=== PATIENT | male | born 1990 | race Two or more races ===

== ENCOUNTER 2018-09-15 13:45 | Inpatient (IN) | payer MEDICAID, OTHER ==
[~2018-09-15] VITALS: Ht 170.2 cm; Wt 64.6 kg
[2018-09-15] MEDS: HALOPERIDOL 5 MG TABLET PO ONE ×2 (14:15→15:18)
[2018-09-15 18:53] VITALS: BP 133/75
[2018-09-16 06:09] VITALS: BP 101/67
[2018-09-16 07:49] LABS: BASOPHILS % (AUTO) 0.2 % (0.0-2.0); EOSINOPHILS % (AUTO) 1.4 % (1.0-6.0); HEMOGLOBIN 13.7 g/dL (13.5-17.5); LYMPHOCYTES # (AUTO) 1.5 K/uL (1.0-4.8); LYMPHOCYTES % (AUTO) 28.7 % (22.0-44.0); MEAN CORPUSCULAR HGB CONC 33.5 G/dL (31.0-37.0); MEAN CORPUSCULAR VOLUME 90 fL (80-100); MONOCYTES # (AUTO) 0.7 K/uL (0.1-1.0); MONOCYTES % (AUTO) 13.1 % (2.0-9.0); NEUTROPHILS % (AUTO) 56.6 % (40.0-70.0); PLATELET COUNT (AUTO) 321 K/uL (150-450); RED BLOOD CELL COUNT(AUTO) 4.57 MIL/uL (4.50-5.90)
[2018-09-16 08:18] LABS: HEMOGLOBIN A1C 5.4 % (4.5-6.2)
[2018-09-16 08:28] VITALS: BP 100/67
[2018-09-16 08:39] LABS: ALANINE AMINOTRANSFERASE 14 U/L (12-78); ALKALINE PHOSPHATASE 56 U/L (46-116); ANION GAP 8 mmol/L (8-16); ASPARTATE AMINOTRANSFERASE 22 U/L (15-37); BILIRUBIN,TOTAL 0.5 mg/dL (0.1-1.0); CARBON DIOXIDE 27 mmol/L (22-29); CHLORIDE 106 mmol/L (98-107); CHOL/HDL RATIO 3.3 (4.2-7.3); CHOLESTEROL 118 mg/dL (131-200); CREATININE 0.82 mg/dL (0.60-1.30); FREE T4 (FREE THYROXINE) 1.08 ng/dL (0.76-1.46); GLOMERULAR FILTR. RATE CALC > 60 mL/min (>60); GLUCOSE,RANDOM 72 mg/dL (70-110); HDL CHOLESTEROL 36 mg/dL (40-60); LDL CHOL (CALC.) 59 mg/dL (0-130); POTASSIUM 3.4 mmol/L (3.5-5.1); SODIUM SERUM 141 mmol/L (136-145); THYROID STIMULATING HORMONE 1.16 uIU/mL (0.36-3.74); TOTAL PROTEIN, SERUM 6.9 g/dL (6.4-8.2); TRIGLYCERIDES 116 mg/dL (15-150); UREA NITROGEN, BLOOD 6 mg/dL (7-18)
[2018-09-16 16:18] VITALS: BP 109/70
[2018-09-16] MEDS: RisperiDONE 1 MG TABLET PO SCH ×2 (16:53→19:33)
[2018-09-16] MEDS: LORazepam 2 MG TABLET PO PRN (19:33)
[2018-09-16] MEDS: HALOPERIDOL 5 MG TABLET PO PRN (19:33)
[2018-09-17 06:16] VITALS: BP 101/60
[2018-09-17 08:02] VITALS: BP 101/64
[2018-09-17 08:06] LABS: BASOPHILS % (AUTO) 0.3 % (0.0-2.0); HEMATOCRIT 39.9 % (41-53); HEMOGLOBIN 13.1 g/dL (13.5-17.5); LYMPHOCYTES # (AUTO) 1.3 K/uL (1.0-4.8); LYMPHOCYTES % (AUTO) 29.8 % (22.0-44.0); MEAN CORPUSCULAR VOLUME 91 fL (80-100); MONOCYTES # (AUTO) 0.5 K/uL (0.1-1.0); MONOCYTES % (AUTO) 12.6 % (2.0-9.0); NEUTROPHILS # (AUTO) 2.4 K/uL (1.8-7.7); NEUTROPHILS % (AUTO) 56.3 % (40.0-70.0); PLATELET COUNT (AUTO) 295 K/uL (150-450); RED BLOOD CELL COUNT(AUTO) 4.38 MIL/uL (4.50-5.90); RED CELL DISTRIBUTION WIDTH 13.7 % (11.5-14.5)
[2018-09-17] MEDS: RisperiDONE 1 MG TABLET PO SCH ×2 (09:49→16:44)
[2018-09-17 16:11] VITALS: BP 108/66
[2018-09-17] MEDS: LACTULOSE 20 GM/30 ML SOLUTION UDCUP PO SCH (16:44)
[2018-09-18 06:00] VITALS: BP 100/61
[2018-09-18 08:16] VITALS: BP 108/62
[2018-09-18] MEDS: RisperiDONE 1 MG TABLET PO SCH ×2 (09:00→16:51)
[2018-09-18] MEDS: LACTULOSE 20 GM/30 ML SOLUTION UDCUP PO SCH ×2 (09:00→16:51)
[2018-09-18 16:19] VITALS: BP 134/83
[2018-09-18] MEDS: HALOPERIDOL 5 MG TABLET PO PRN (16:51)
[2018-09-18] MEDS: LORazepam 2 MG TABLET PO PRN (16:51)
[2018-09-19 06:13] VITALS: BP 110/65
[2018-09-19 07:09] LABS: BASOPHILS % (AUTO) 0.3 % (0.0-2.0); EOSINOPHILS % (AUTO) 0.8 % (1.0-6.0); HEMOGLOBIN 14.1 g/dL (13.5-17.5); LYMPHOCYTES # (AUTO) 1.3 K/uL (1.0-4.8); LYMPHOCYTES % (AUTO) 26.8 % (22.0-44.0); MEAN CORPUSCULAR HEMOGLOBIN 30.3 pg (26.0-34.0); MEAN CORPUSCULAR HGB CONC 33.5 G/dL (31.0-37.0); MEAN CORPUSCULAR VOLUME 90 fL (80-100); MONOCYTES # (AUTO) 0.6 K/uL (0.1-1.0); MONOCYTES % (AUTO) 12.6 % (2.0-9.0); NEUTROPHILS # (AUTO) 2.9 K/uL (1.8-7.7); NEUTROPHILS % (AUTO) 59.5 % (40.0-70.0); PLATELET COUNT (AUTO) 297 K/uL (150-450); RED BLOOD CELL COUNT(AUTO) 4.65 MIL/uL (4.50-5.90)
[2018-09-19 08:00] VITALS: BP 101/61
[2018-09-19] MEDS ORDERED: POTASSIUM CHLORIDE 20 MEQ ER TABLET PO ONE (08:30)
[2018-09-19] MEDS: RisperiDONE 1 MG TABLET PO SCH ×2 (09:16→16:25)
[2018-09-19] MEDS: LACTULOSE 20 GM/30 ML SOLUTION UDCUP PO SCH ×2 (09:16→16:25)
[2018-09-19] MEDS: LORazepam 2 MG TABLET PO PRN (16:25)
[2018-09-19] MEDS: HALOPERIDOL 5 MG TABLET PO PRN (16:25)
[2018-09-19] MEDS: ZOLPIDEM TARTRATE 10 MG TABLET PO PRN (20:41)
[2018-09-20 08:18] LABS: ANION GAP 4 mmol/L (8-16); CALCIUM, TOTAL 8.8 mg/dL (8.8-10.5); CARBON DIOXIDE 29 mmol/L (22-29); CHLORIDE 104 mmol/L (98-107); GLOMERULAR FILTR. RATE CALC > 60 mL/min (>60); GLUCOSE,RANDOM 83 mg/dL (70-110); POTASSIUM 4.5 mmol/L (3.5-5.1); SODIUM SERUM 137 mmol/L (136-145); UREA NITROGEN, BLOOD 8 mg/dL (7-18)
[2018-09-20] MEDS: LORazepam 2 MG TABLET PO PRN ×2 (08:47→16:30)
[2018-09-20] MEDS: RisperiDONE 1 MG TABLET PO SCH ×3 (08:47→16:57)
[2018-09-20] MEDS: LACTULOSE 20 GM/30 ML SOLUTION UDCUP PO SCH ×3 (08:47→16:57)
[2018-09-20 16:13] VITALS: BP 111/68
[2018-09-20] MEDS: HALOPERIDOL 5 MG TABLET PO PRN (16:30)
[2018-09-20] MEDS: ZOLPIDEM TARTRATE 10 MG TABLET PO PRN (20:14)
[2018-09-21 05:37] VITALS: BP 103/69
[2018-09-21] MEDS: RisperiDONE 1 MG TABLET PO SCH ×2 (08:37→16:45)
[2018-09-21] MEDS: LACTULOSE 20 GM/30 ML SOLUTION UDCUP PO SCH ×2 (08:37→16:44)
[2018-09-21] MEDS: LORazepam 2 MG TABLET PO PRN (08:37)
[2018-09-21 16:10] VITALS: BP 100/59
[2018-09-21] MEDS: HALOPERIDOL 5 MG TABLET PO PRN (16:45)
[2018-09-21] MEDS ORDERED: LORazepam 2 MG/ML VIAL ONE (18:28)
[2018-09-21] MEDS: ZOLPIDEM TARTRATE 10 MG TABLET PO PRN (20:27)
[2018-09-22 00:06] VITALS: BP 102/69
[2018-09-22] MEDS: LACTULOSE 20 GM/30 ML SOLUTION UDCUP PO SCH ×2 (08:39→16:21)
[2018-09-22] MEDS: RisperiDONE 1 MG TABLET PO SCH ×2 (08:39→16:21)
[2018-09-22] MEDS: LORazepam 2 MG TABLET PO PRN ×2 (08:39→16:21)
[2018-09-22 08:59] VITALS: BP 115/82
[2018-09-22] MEDS: HALOPERIDOL 5 MG TABLET PO PRN (16:21)
[2018-09-22 16:26] VITALS: BP 142/88
[2018-09-23 06:28] VITALS: BP 110/79
[2018-09-23 08:23] VITALS: BP 107/72
[2018-09-23] MEDS: LACTULOSE 20 GM/30 ML SOLUTION UDCUP PO SCH ×2 (08:38→16:22)
[2018-09-23] MEDS: RisperiDONE 1 MG TABLET PO SCH ×2 (08:38→16:22)
[2018-09-23 16:13] VITALS: BP 110/74
[2018-09-23] MEDS: LORazepam 2 MG TABLET PO PRN (16:22)
[2018-09-23] MEDS: HALOPERIDOL 5 MG TABLET PO PRN (16:22)
[2018-09-23] MEDS: ZOLPIDEM TARTRATE 10 MG TABLET PO PRN (20:39)
[2018-09-24 05:04] VITALS: BP 99/62
[2018-09-24] MEDS: RisperiDONE 1 MG TABLET PO SCH ×2 (09:00→16:36)
[2018-09-24] MEDS: HALOPERIDOL 5 MG TABLET PO PRN (16:36)
[2018-09-24] MEDS: LORazepam 2 MG TABLET PO PRN (16:36)
[2018-09-25 05:58] VITALS: BP 108/72
[2018-09-25 08:27] VITALS: BP 110/65
[2018-09-25] MEDS: RisperiDONE 1 MG TABLET PO SCH ×2 (09:19→16:49)
[2018-09-25 16:25] VITALS: BP 107/76
[2018-09-26 06:30] VITALS: BP 100/67
[2018-09-26 08:37] VITALS: BP 102/71
[2018-09-26] MEDS: RisperiDONE 1 MG TABLET PO SCH ×2 (09:14→16:40)
[2018-09-26 16:17] VITALS: BP 111/74
[2018-09-27 06:45] VITALS: BP 123/66
[2018-09-27 08:24] VITALS: BP 107/69
[2018-09-27] MEDS: RisperiDONE 1 MG TABLET PO SCH (09:29)
[2018-09-27] MEDS ORDERED: RISP1 PO (10:17)
== END 2018-09-27 10:50 | disposition home or self-care (01) | DRG 750 ==
LOC: EMS 13:45 → B3A 17:32
PROVIDERS: ADMIT Psychiatry & Neurology Psychiatry; ATTEND Psychiatry & Neurology Psychiatry
DX: F20.0 Paranoid schizophrenia (principal); Z59.0 Homelessness; F94.0 Selective mutism; Z53.20 Procedure and treatment not carried out because of patient's decision for unspecified reasons; Z91.19 Patient's noncompliance with other medical treatment and regimen
CPT/HCPCS: 80074; 83036; 84439; 84443; 86592; J2060

== ENCOUNTER 2020-09-09 16:54 | Inpatient (IN) | payer MEDICAID, OTHER ==
[~2020-09-09] VITALS: Ht 167.6 cm; Wt 74.2 kg
[~2020-09-09 16:54] MED LIST: RISP1TAB48 PO
[2020-09-09] MEDS ORDERED: PERMETHRIN 5% 60 GM CREAM TP ONE (18:45)
[2020-09-09 18:49] LABS: BASOPHILS % (AUTO) 0.3 % (0.0-2.0); HEMATOCRIT 47.7 % (41-53); HEMOGLOBIN 16.3 g/dL (13.5-17.5); LYMPHOCYTES # (AUTO) 1.3 K/uL (1.0-4.8); LYMPHOCYTES % (AUTO) 16.6 % (22.0-44.0); MEAN CORPUSCULAR HEMOGLOBIN 31.5 pg (26.0-34.0); MEAN CORPUSCULAR HGB CONC 34.2 G/dL (31.0-37.0); MEAN CORPUSCULAR VOLUME 92 fL (80-100); MONOCYTES % (AUTO) 12.6 % (2.0-9.0); NEUTROPHILS # (AUTO) 4.4 K/uL (1.8-7.7); NEUTROPHILS % (AUTO) 54.8 % (40.0-70.0); PLATELET COUNT (AUTO) 256 K/uL (150-450); RED BLOOD CELL COUNT(AUTO) 5.17 MIL/uL (4.50-5.90); RED CELL DISTRIBUTION WIDTH 13.2 % (11.5-14.5)
[2020-09-09 18:50] LABS: EOSINOPHILS % (AUTO) 15.7 % (1.0-6.0)
[2020-09-09] MEDS ORDERED: RISP3TAB35 PO (18:55)
[2020-09-09] MEDS ORDERED: LORazepam 2 MG/ML VIAL IM ONE (19:00)
[2020-09-09] MEDS ORDERED: DiphenhydrAMINE HCL 50 MG/ML VIAL IM ONE (19:00)
[2020-09-09] MEDS ORDERED: HALOPERIDOL LACTATE 5 MG/ML VIAL IM ONE (19:00)
[2020-09-09 19:01] LABS: ANION GAP 6 mmol/L (8-16); CALCIUM, TOTAL 9.6 mg/dL (8.8-10.5); CARBON DIOXIDE 30 mmol/L (22-29); CHLORIDE 102 mmol/L (98-107); CREATININE 1.09 mg/dL (0.60-1.30); GLOMERULAR FILTR. RATE CALC > 60 mL/min (>60); GLUCOSE,RANDOM 97 mg/dL (70-110); SODIUM SERUM 138 mmol/L (136-145); UREA NITROGEN, BLOOD 12 mg/dL (7-18)
[2020-09-09 19:05] LABS: PLATELET MORPHOLOGY COMMENT LARGE PLTS PRESENT
[2020-09-09 19:07] LABS: ALANINE AMINOTRANSFERASE 26 U/L (12-78); ALBUMIN 4.7 g/dL (3.4-5.0); ALKALINE PHOSPHATASE 94 U/L (46-116); ASPARTATE AMINOTRANSFERASE 31 U/L (15-37); BILIRUBIN,TOTAL 0.6 mg/dL (0.1-1.0); TOTAL PROTEIN, SERUM 8.4 g/dL (6.4-8.2)
[2020-09-09] MEDS ORDERED: ZOLPIDEM TARTRATE 10 MG TABLET PO PRN (20:30)
[2020-09-09] MEDS ORDERED: QUEtiapine FUMARATE 100 MG TABLET PO PRN (20:30)
[2020-09-09] MEDS ORDERED: LORazepam 2 MG TABLET PO PRN (20:30)
[2020-09-09 21:52] LABS: COVID AG,FIA SOURCE NASOPHARYNGEAL
[2020-09-10 06:54] LABS: CHOL/HDL RATIO 4.1 (4.2-7.3); CHOLESTEROL 175 mg/dL (131-200); HDL CHOLESTEROL 43 mg/dL (40-60); TRIGLYCERIDES 123 mg/dL (15-150)
[2020-09-10 06:55] LABS: LDL CHOL (CALC.) 107 mg/dL (0-130)
[2020-09-10 13:26] VITALS: BP 109/70
[2020-09-11] MEDS ORDERED: DOCUSATE SODIUM 100 MG CAPSULE PO PRN (07:15)
[2020-09-11] MEDS ORDERED: ONDANSETRON HCL 4 MG TABLET PO PRN (07:15)
[2020-09-11] MEDS ORDERED: MAG HYDROX/AL HYDROX/SIMETH ES 30 ML SUSPENSION UDCUP PO PRN (07:15)
[2020-09-11] MEDS ORDERED: NICOTINE 14 MG/24 HOUR PATCH TD PRN (07:15)
[2020-09-11] MEDS ORDERED: LOPERAMIDE HCL 2 MG CAPSULE PO PRN (07:15)
[2020-09-11] MEDS ORDERED: MAGNESIUM HYDROXIDE SUSPENSION 30 ML UDCUP PO PRN (07:15)
[2020-09-11] MEDS ORDERED: IBUPROFEN 400 MG TABLET PO PRN (07:15)
[2020-09-11] MEDS ORDERED: CloNIDine HCL 0.1 MG TABLET PO PRN (07:15)
[2020-09-11] MEDS ORDERED: ACETAMINOPHEN 325 MG TABLET PO PRN (07:15)
[2020-09-11] MEDS ORDERED: ALBUTEROL SULFATE HFA 90 MCG/PUFF 8 GM INHALER IH PRN (07:15)
[2020-09-11] MEDS ORDERED: GuaiFENesin/D-METHORPHAN [SUGAR-FREE] 200-20MG/10 ML SYRUP UDCUP PO PRN (07:15)
[2020-09-11 08:59] VITALS: BP 100/64
[2020-09-11] MEDS: RisperiDONE 3 MG TABLET PO SCH ×2 (09:45→16:54)
[2020-09-12] MEDS: RisperiDONE 3 MG TABLET PO SCH ×2 (09:00→17:00)
[2020-09-12 16:00] VITALS: BP 104/64
[2020-09-12] MEDS ORDERED: PERMETHRIN 1% 60 ML LOTION TP ONE (21:00)
[2020-09-12] MEDS ORDERED: PERMETHRIN 5% 60 GM CREAM TP ONE (21:00)
[2020-09-13] MEDS: RisperiDONE 3 MG TABLET PO SCH ×2 (09:00→16:49)
[2020-09-14] MEDS: RisperiDONE 3 MG TABLET PO SCH ×2 (09:00→17:00)
[2020-09-15] MEDS: RisperiDONE 3 MG TABLET PO SCH ×3 (09:00→16:50)
[2020-09-16] MEDS: RisperiDONE 3 MG TABLET PO SCH ×2 (09:00→17:00)
[2020-09-17] MEDS: RisperiDONE 3 MG TABLET PO SCH ×2 (09:00→16:51)
[2020-09-18] MEDS: RisperiDONE 3 MG TABLET PO SCH ×3 (08:40→17:00)
[2020-09-19] MEDS: RisperiDONE 3 MG TABLET PO SCH ×2 (09:00→17:24)
[2020-09-19] MEDS ORDERED: PERMETHRIN 1% 60 ML LOTION TP ONE (14:00)
[2020-09-20] MEDS: RisperiDONE 3 MG TABLET PO SCH ×2 (09:00→16:54)
[2020-09-20 16:00] VITALS: BP 126/78
[2020-09-20] MEDS ORDERED: HALOPERIDOL LACTATE 5 MG/ML VIAL IM PRN (16:45)
[2020-09-21 08:00] VITALS: BP 102/64
[2020-09-21] MEDS: RisperiDONE 3 MG TABLET PO SCH ×2 (13:27→16:21)
[2020-09-22] MEDS: RisperiDONE 3 MG TABLET PO SCH ×2 (08:09→16:12)
[2020-09-23] MEDS: RisperiDONE 3 MG TABLET PO SCH ×2 (08:26→16:50)
[2020-09-23 14:37] LABS: COVID AG,FIA SOURCE NASOPHARYNGEAL
[2020-09-23 16:27] VITALS: BP 129/83
[2020-09-24] MEDS: RisperiDONE 3 MG TABLET PO SCH ×2 (09:51→16:52)
[2020-09-24 10:40] VITALS: BP 106/68
[2020-09-24 16:09] VITALS: BP 121/78
[2020-09-25] MEDS: RisperiDONE 3 MG TABLET PO SCH ×2 (09:50→16:44)
[2020-09-25 16:17] VITALS: BP 129/82
[2020-09-26] MEDS: RisperiDONE 3 MG TABLET PO SCH ×2 (08:54→16:43)
[2020-09-26] MEDS ORDERED: PERMETHRIN 5% 60 GM CREAM TP ONE (15:00)
[2020-09-26 16:17] VITALS: BP 129/77
[2020-09-27] MEDS: RisperiDONE 3 MG TABLET PO SCH ×2 (08:58→17:33)
[2020-09-28] MEDS: RisperiDONE 3 MG TABLET PO SCH ×2 (10:23→16:45)
[2020-09-29] MEDS: RisperiDONE 3 MG TABLET PO SCH ×2 (08:23→16:29)
[2020-09-29 08:25] VITALS: BP 110/72
[2020-09-29] MEDS: CALAMINE/ZINC OXIDE 177 ML LOTION TP PRN (09:31)
[2020-09-30] MEDS: RisperiDONE 3 MG TABLET PO SCH ×2 (08:32→16:32)
[2020-09-30 08:39] VITALS: BP 114/68
[2020-09-30 16:23] VITALS: BP 110/66
[2020-10-01] MEDS: RisperiDONE 3 MG TABLET PO SCH ×2 (08:02→16:10)
[2020-10-01 08:15] VITALS: BP 104/53
[2020-10-01] MEDS: CALAMINE/ZINC OXIDE 177 ML LOTION TP PRN (14:50)
[2020-10-01 16:16] VITALS: BP 112/62
[2020-10-02 08:45] VITALS: BP 114/67
[2020-10-02] MEDS: RisperiDONE 3 MG TABLET PO SCH ×2 (09:52→16:28)
[2020-10-03] MEDS: RisperiDONE 3 MG TABLET PO SCH ×2 (08:38→16:44)
[2020-10-03 16:25] LABS: COVID AG,FIA SOURCE NASOPHARYNGEAL
[2020-10-04] MEDS: VITAMINS A & D 113 GM OINTMENT TP SCH ×2 (08:52→20:56)
[2020-10-04] MEDS: RisperiDONE 3 MG TABLET PO SCH ×2 (08:52→16:18)
[2020-10-04] MEDS: DIVALPROEX SODIUM 500 MG DR TABLET PO SCH ×2 (15:00→20:29)
[2020-10-05 08:18] VITALS: BP 128/79
[2020-10-05] MEDS: DIVALPROEX SODIUM 500 MG DR TABLET PO SCH ×2 (08:42→20:58)
[2020-10-05] MEDS: RisperiDONE 3 MG TABLET PO SCH ×2 (08:42→16:24)
[2020-10-06 08:00] VITALS: BP 110/68
[2020-10-06] MEDS: DIVALPROEX SODIUM 500 MG DR TABLET PO SCH ×2 (08:27→20:30)
[2020-10-06] MEDS: RisperiDONE 3 MG TABLET PO SCH ×2 (08:27→17:16)
[2020-10-06] MEDS: VITAMINS A & D 113 GM OINTMENT TP SCH (08:31)
[2020-10-06 16:54] VITALS: BP 124/81
[2020-10-07 08:00] VITALS: BP 90/60
[2020-10-07] MEDS: RisperiDONE 3 MG TABLET PO SCH ×2 (08:21→16:42)
[2020-10-07] MEDS: VITAMINS A & D 113 GM OINTMENT TP SCH (08:21)
[2020-10-07] MEDS: DIVALPROEX SODIUM 500 MG DR TABLET PO SCH ×2 (08:21→20:55)
[2020-10-08 08:15] VITALS: BP 123/78
[2020-10-08] MEDS: VITAMINS A & D 113 GM OINTMENT TP SCH (08:35)
[2020-10-08] MEDS: DIVALPROEX SODIUM 500 MG DR TABLET PO SCH ×2 (08:35→20:22)
[2020-10-08] MEDS: RisperiDONE 3 MG TABLET PO SCH ×2 (08:35→16:25)
[2020-10-08] MEDS: CALAMINE/ZINC OXIDE 177 ML LOTION TP PRN (14:33)
[2020-10-09 08:27] VITALS: BP 110/64
[2020-10-09] MEDS: DIVALPROEX SODIUM 500 MG DR TABLET PO SCH ×2 (08:52→20:21)
[2020-10-09] MEDS: VITAMINS A & D 113 GM OINTMENT TP SCH (08:52)
[2020-10-09] MEDS: RisperiDONE 3 MG TABLET PO SCH ×2 (08:52→16:00)
[2020-10-10 08:37] VITALS: BP 100/59
[2020-10-10] MEDS: DIVALPROEX SODIUM 500 MG DR TABLET PO SCH ×2 (11:21→20:18)
[2020-10-10] MEDS: VITAMINS A & D 113 GM OINTMENT TP SCH (11:21)
[2020-10-10] MEDS: RisperiDONE 3 MG TABLET PO SCH ×2 (11:21→16:17)
[2020-10-10] MEDS: CALAMINE/ZINC OXIDE 177 ML LOTION TP PRN (11:22)
[2020-10-10] MEDS: PETROLATUM,WHITE 28 GM JELLY TP PRN (11:22)
[2020-10-10 11:56] LABS: COVID AG,FIA SOURCE NASOPHARYNGEAL
[2020-10-10 16:19] VITALS: BP 121/76
[2020-10-11 08:38] VITALS: BP 109/67
[2020-10-11] MEDS: RisperiDONE 3 MG TABLET PO SCH ×2 (08:52→16:28)
[2020-10-11] MEDS: PETROLATUM,WHITE 28 GM JELLY TP PRN (08:52)
[2020-10-11] MEDS: DIVALPROEX SODIUM 500 MG DR TABLET PO SCH ×2 (08:52→20:42)
[2020-10-11] MEDS: VITAMINS A & D 113 GM OINTMENT TP SCH (08:59)
[2020-10-11 16:27] VITALS: BP 117/77
[2020-10-12 08:29] VITALS: BP 98/52
[2020-10-12] MEDS: RisperiDONE 3 MG TABLET PO SCH ×2 (08:52→16:14)
[2020-10-12] MEDS: DIVALPROEX SODIUM 500 MG DR TABLET PO SCH ×2 (08:52→20:26)
[2020-10-12] MEDS: VITAMINS A & D 113 GM OINTMENT TP SCH (08:53)
[2020-10-12 16:26] VITALS: BP 110/67
[2020-10-13 09:29] VITALS: BP 106/67
[2020-10-13] MEDS: DIVALPROEX SODIUM 500 MG DR TABLET PO SCH ×2 (10:18→20:07)
[2020-10-13] MEDS: RisperiDONE 3 MG TABLET PO SCH ×2 (10:18→16:14)
[2020-10-13] MEDS: VITAMINS A & D 113 GM OINTMENT TP SCH (10:19)
[2020-10-13 16:00] VITALS: BP 110/69
[2020-10-14 09:01] VITALS: BP 125/62
[2020-10-14] MEDS: DIVALPROEX SODIUM 500 MG DR TABLET PO SCH ×2 (09:08→20:08)
[2020-10-14] MEDS: VITAMINS A & D 113 GM OINTMENT TP SCH (09:09)
[2020-10-14] MEDS: RisperiDONE 3 MG TABLET PO SCH ×2 (09:09→16:18)
[2020-10-14 16:06] VITALS: BP 113/64
[2020-10-15 08:40] VITALS: BP 97/59
[2020-10-15] MEDS: RisperiDONE 3 MG TABLET PO SCH ×2 (10:32→16:31)
[2020-10-15] MEDS: DIVALPROEX SODIUM 500 MG DR TABLET PO SCH ×2 (10:32→20:21)
[2020-10-15] MEDS: VITAMINS A & D 113 GM OINTMENT TP SCH (10:33)
[2020-10-15 16:42] VITALS: BP 124/80
[2020-10-16 08:29] VITALS: BP 96/54
[2020-10-16] MEDS: DIVALPROEX SODIUM 500 MG DR TABLET PO SCH ×2 (10:04→20:34)
[2020-10-16] MEDS: RisperiDONE 3 MG TABLET PO SCH ×2 (10:04→17:04)
[2020-10-16] MEDS: VITAMINS A & D 113 GM OINTMENT TP SCH (10:05)
[2020-10-16 16:00] VITALS: BP 120/86
[2020-10-16 17:17] VITALS: BP 120/86
[2020-10-17] MEDS: RisperiDONE 3 MG TABLET PO SCH ×2 (09:13→16:17)
[2020-10-17] MEDS: VITAMINS A & D 113 GM OINTMENT TP SCH (09:13)
[2020-10-17] MEDS: DIVALPROEX SODIUM 500 MG DR TABLET PO SCH ×2 (09:13→20:35)
[2020-10-17 14:41] LABS: COVID AG,FIA SOURCE NASOPHARYNGEAL
[2020-10-17 16:28] VITALS: BP 121/76
[2020-10-18 08:48] VITALS: BP 98/65
[2020-10-18] MEDS: RisperiDONE 3 MG TABLET PO SCH ×2 (11:38→16:10)
[2020-10-18] MEDS: DIVALPROEX SODIUM 500 MG DR TABLET PO SCH ×2 (11:38→20:08)
[2020-10-18] MEDS: CALAMINE/ZINC OXIDE 177 ML LOTION TP PRN (11:39)
[2020-10-18] MEDS: VITAMINS A & D 113 GM OINTMENT TP SCH (11:39)
[2020-10-19 08:00] VITALS: BP 104/58
[2020-10-19] MEDS: RisperiDONE 3 MG TABLET PO SCH ×2 (10:35→17:10)
[2020-10-19] MEDS: VITAMINS A & D 113 GM OINTMENT TP SCH (10:35)
[2020-10-19] MEDS: DIVALPROEX SODIUM 500 MG DR TABLET PO SCH ×2 (10:35→20:47)
[2020-10-19 16:40] VITALS: BP 95/62
[2020-10-19 20:00] VITALS: BP 100/64
[2020-10-20 08:00] VITALS: BP 110/66
[2020-10-20] MEDS: VITAMINS A & D 113 GM OINTMENT TP SCH (08:43)
[2020-10-20] MEDS: DIVALPROEX SODIUM 500 MG DR TABLET PO SCH ×2 (08:43→20:53)
[2020-10-20] MEDS: RisperiDONE 3 MG TABLET PO SCH ×2 (08:43→16:34)
[2020-10-20 16:00] VITALS: BP 115/89
[2020-10-20 20:00] VITALS: BP 111/87
[2020-10-21] MEDS: VITAMINS A & D 113 GM OINTMENT TP SCH (08:39)
[2020-10-21] MEDS: RisperiDONE 3 MG TABLET PO SCH ×2 (08:39→16:41)
[2020-10-21] MEDS: DIVALPROEX SODIUM 500 MG DR TABLET PO SCH ×2 (08:39→21:02)
[2020-10-21 16:19] VITALS: BP 110/58
[2020-10-21 20:00] VITALS: BP 111/61
[2020-10-22] MEDS: DIVALPROEX SODIUM 500 MG DR TABLET PO SCH ×2 (08:28→20:43)
[2020-10-22] MEDS: RisperiDONE 3 MG TABLET PO SCH ×2 (08:28→16:29)
[2020-10-22] MEDS: VITAMINS A & D 113 GM OINTMENT TP SCH (08:28)
[2020-10-22 09:00] VITALS: BP 101/68
[2020-10-22 16:52] VITALS: BP 103/64
[2020-10-23 08:00] VITALS: BP 118/68
[2020-10-23] MEDS: RisperiDONE 3 MG TABLET PO SCH ×2 (08:31→16:11)
[2020-10-23] MEDS: DIVALPROEX SODIUM 500 MG DR TABLET PO SCH ×2 (08:31→20:08)
[2020-10-23] MEDS: VITAMINS A & D 113 GM OINTMENT TP SCH (12:10)
[2020-10-23 16:00] VITALS: BP 94/61
[2020-10-24 08:00] VITALS: BP 105/64
[2020-10-24] MEDS: RisperiDONE 3 MG TABLET PO SCH ×2 (09:29→16:16)
[2020-10-24] MEDS: DIVALPROEX SODIUM 500 MG DR TABLET PO SCH ×2 (09:29→20:20)
[2020-10-24] MEDS: VITAMINS A & D 113 GM OINTMENT TP SCH (09:29)
[2020-10-24 14:20] LABS: COVID AG,FIA SOURCE NASOPHARYNGEAL
[2020-10-24 16:00] VITALS: BP 95/60
[2020-10-25] MEDS: DIVALPROEX SODIUM 500 MG DR TABLET PO SCH ×2 (08:35→20:48)
[2020-10-25] MEDS: RisperiDONE 3 MG TABLET PO SCH ×2 (08:35→16:20)
[2020-10-25] MEDS: VITAMINS A & D 113 GM OINTMENT TP SCH (08:36)
[2020-10-25 09:30] VITALS: BP 110/71
[2020-10-25 16:04] VITALS: BP 108/52
[2020-10-26 08:00] VITALS: BP 135/77
[2020-10-26] MEDS: RisperiDONE 3 MG TABLET PO SCH ×2 (08:24→17:02)
[2020-10-26] MEDS: DIVALPROEX SODIUM 500 MG DR TABLET PO SCH ×2 (08:24→20:48)
[2020-10-26] MEDS: VITAMINS A & D 113 GM OINTMENT TP SCH (08:24)
[2020-10-26 16:22] VITALS: BP 105/71
[2020-10-27 09:00] VITALS: BP 101/68
[2020-10-27] MEDS: RisperiDONE 3 MG TABLET PO SCH ×2 (09:13→16:16)
[2020-10-27] MEDS: DIVALPROEX SODIUM 500 MG DR TABLET PO SCH ×2 (09:13→20:17)
[2020-10-27] MEDS: VITAMINS A & D 113 GM OINTMENT TP SCH (09:13)
[2020-10-27 16:48] VITALS: BP 104/65
[2020-10-28 08:12] VITALS: BP 123/77
[2020-10-28] MEDS: DIVALPROEX SODIUM 500 MG DR TABLET PO SCH ×2 (09:36→20:18)
[2020-10-28] MEDS: RisperiDONE 3 MG TABLET PO SCH ×2 (09:36→16:28)
[2020-10-28] MEDS: VITAMINS A & D 113 GM OINTMENT TP SCH (09:37)
[2020-10-28 16:00] VITALS: BP 105/62
[2020-10-29] MEDS: DIVALPROEX SODIUM 500 MG DR TABLET PO SCH ×2 (08:06→20:22)
[2020-10-29] MEDS: VITAMINS A & D 113 GM OINTMENT TP SCH (08:06)
[2020-10-29] MEDS: RisperiDONE 3 MG TABLET PO SCH ×2 (08:06→16:23)
[2020-10-29 09:12] VITALS: BP 121/85
[2020-10-29 16:16] VITALS: BP 122/77
[2020-10-30 01:34] VITALS: BP 106/71
[2020-10-30 09:24] VITALS: BP 120/78
[2020-10-30] MEDS: VITAMINS A & D 113 GM OINTMENT TP SCH (09:37)
[2020-10-30] MEDS: RisperiDONE 3 MG TABLET PO SCH ×2 (09:37→16:01)
[2020-10-30] MEDS: DIVALPROEX SODIUM 500 MG DR TABLET PO SCH ×2 (09:37→20:21)
[2020-10-30 16:15] VITALS: BP 108/64
[2020-10-31] MEDS: VITAMINS A & D 113 GM OINTMENT TP SCH (08:51)
[2020-10-31] MEDS: DIVALPROEX SODIUM 500 MG DR TABLET PO SCH ×2 (08:51→20:50)
[2020-10-31] MEDS: RisperiDONE 3 MG TABLET PO SCH ×2 (08:51→16:44)
[2020-10-31 15:51] LABS: COVID AG,FIA SOURCE NASOPHARYNGEAL
[2020-10-31 16:00] VITALS: BP 109/67
[2020-11-01 08:00] VITALS: BP 112/69
[2020-11-01] MEDS: VITAMINS A & D 113 GM OINTMENT TP SCH (09:40)
[2020-11-01] MEDS: RisperiDONE 3 MG TABLET PO SCH ×2 (09:40→16:38)
[2020-11-01] MEDS: DIVALPROEX SODIUM 500 MG DR TABLET PO SCH ×2 (09:40→20:18)
[2020-11-01 16:00] VITALS: BP 101/62
[2020-11-02] MEDS: RisperiDONE 3 MG TABLET PO SCH ×2 (08:36→16:04)
[2020-11-02] MEDS: DIVALPROEX SODIUM 500 MG DR TABLET PO SCH ×2 (08:36→20:18)
[2020-11-02 08:57] VITALS: BP 131/89
[2020-11-02] MEDS: VITAMINS A & D 113 GM OINTMENT TP SCH (10:00)
[2020-11-02 16:07] VITALS: BP 119/71
[2020-11-03 08:54] VITALS: BP 111/70
[2020-11-03] MEDS: DIVALPROEX SODIUM 500 MG DR TABLET PO SCH ×2 (10:08→21:14)
[2020-11-03] MEDS: RisperiDONE 3 MG TABLET PO SCH ×2 (10:08→17:14)
[2020-11-03] MEDS: VITAMINS A & D 113 GM OINTMENT TP SCH (10:08)
[2020-11-03 16:30] VITALS: BP 100/74
[2020-11-04] MEDS: DIVALPROEX SODIUM 500 MG DR TABLET PO SCH ×2 (08:09→21:25)
[2020-11-04] MEDS: RisperiDONE 3 MG TABLET PO SCH ×2 (08:09→17:01)
[2020-11-04 08:52] VITALS: BP 102/63
[2020-11-04] MEDS: VITAMINS A & D 113 GM OINTMENT TP SCH (09:00)
[2020-11-04 16:00] VITALS: BP 131/79
[2020-11-05 08:38] VITALS: BP 115/67
[2020-11-05] MEDS: VITAMINS A & D 113 GM OINTMENT TP SCH (09:10)
[2020-11-05] MEDS: RisperiDONE 3 MG TABLET PO SCH ×2 (09:11→16:10)
[2020-11-05] MEDS: DIVALPROEX SODIUM 500 MG DR TABLET PO SCH ×2 (09:11→20:07)
[2020-11-06 09:06] VITALS: BP 108/70
[2020-11-06] MEDS: RisperiDONE 3 MG TABLET PO SCH ×2 (10:01→16:06)
[2020-11-06] MEDS: DIVALPROEX SODIUM 500 MG DR TABLET PO SCH ×2 (10:01→20:16)
[2020-11-06] MEDS: VITAMINS A & D 113 GM OINTMENT TP SCH (10:01)
[2020-11-06 17:10] VITALS: BP 116/75
[2020-11-07 08:41] VITALS: BP 102/59
[2020-11-07] MEDS: DIVALPROEX SODIUM 500 MG DR TABLET PO SCH ×2 (08:55→20:05)
[2020-11-07] MEDS: RisperiDONE 3 MG TABLET PO SCH ×2 (08:55→16:17)
[2020-11-07] MEDS: VITAMINS A & D 113 GM OINTMENT TP SCH (08:56)
[2020-11-07 16:41] VITALS: BP 98/61
[2020-11-07 19:56] LABS: COVID AG,FIA SOURCE NASAL SWAB
[2020-11-08] MEDS: DIVALPROEX SODIUM 500 MG DR TABLET PO SCH ×2 (09:26→20:58)
[2020-11-08] MEDS: VITAMINS A & D 113 GM OINTMENT TP SCH (09:26)
[2020-11-08] MEDS: RisperiDONE 3 MG TABLET PO SCH ×2 (09:26→16:40)
[2020-11-08 10:31] VITALS: BP 104/63
[2020-11-08 16:16] VITALS: BP 104/64
[2020-11-08 20:00] VITALS: BP 110/67
[2020-11-09 02:05] VITALS: BP 101/71
[2020-11-09 08:17] VITALS: BP 130/83
[2020-11-09] MEDS: DIVALPROEX SODIUM 500 MG DR TABLET PO SCH ×2 (08:19→20:30)
[2020-11-09] MEDS: RisperiDONE 3 MG TABLET PO SCH ×2 (08:19→16:25)
[2020-11-09] MEDS: VITAMINS A & D 113 GM OINTMENT TP SCH (09:52)
[2020-11-09 16:29] VITALS: BP 104/60
[2020-11-10 08:45] VITALS: BP 100/60
[2020-11-10] MEDS: DIVALPROEX SODIUM 500 MG DR TABLET PO SCH ×2 (09:09→20:13)
[2020-11-10] MEDS: VITAMINS A & D 113 GM OINTMENT TP SCH (09:09)
[2020-11-10] MEDS: RisperiDONE 3 MG TABLET PO SCH ×2 (09:09→16:11)
[2020-11-10 16:43] VITALS: BP 110/60
[2020-11-11 04:47] VITALS: BP 106/64
[2020-11-11 08:15] VITALS: BP 101/65
[2020-11-11] MEDS: VITAMINS A & D 113 GM OINTMENT TP SCH (10:13)
[2020-11-11] MEDS: DIVALPROEX SODIUM 500 MG DR TABLET PO SCH ×2 (10:13→20:21)
[2020-11-11] MEDS: RisperiDONE 3 MG TABLET PO SCH ×2 (10:13→16:02)
[2020-11-11 16:00] VITALS: BP 109/62
[2020-11-12] MEDS: DIVALPROEX SODIUM 500 MG DR TABLET PO SCH ×2 (08:06→20:11)
[2020-11-12] MEDS: RisperiDONE 3 MG TABLET PO SCH ×2 (08:06→16:02)
[2020-11-12 08:44] VITALS: BP 104/67
[2020-11-12] MEDS: VITAMINS A & D 113 GM OINTMENT TP SCH (11:41)
[2020-11-12 16:00] VITALS: BP 105/65
[2020-11-13 08:00] VITALS: BP 98/60
[2020-11-13] MEDS: DIVALPROEX SODIUM 500 MG DR TABLET PO SCH ×2 (09:01→21:09)
[2020-11-13] MEDS: RisperiDONE 3 MG TABLET PO SCH ×2 (09:01→17:18)
[2020-11-13] MEDS: VITAMINS A & D 113 GM OINTMENT TP SCH (09:01)
[2020-11-13 16:00] VITALS: BP 106/65
[2020-11-14] MEDS: RisperiDONE 3 MG TABLET PO SCH ×2 (09:42→17:26)
[2020-11-14] MEDS: DIVALPROEX SODIUM 500 MG DR TABLET PO SCH ×2 (09:42→21:18)
[2020-11-14] MEDS: VITAMINS A & D 113 GM OINTMENT TP SCH (09:43)
[2020-11-14 16:33] VITALS: BP 97/65
[2020-11-14 21:29] LABS: COVID AG,FIA SOURCE NASOPHARYNGEAL
[2020-11-15] MEDS: DIVALPROEX SODIUM 500 MG DR TABLET PO SCH ×2 (09:26→21:07)
[2020-11-15] MEDS: RisperiDONE 3 MG TABLET PO SCH ×2 (09:26→17:44)
[2020-11-15] MEDS: VITAMINS A & D 113 GM OINTMENT TP SCH (11:47)
[2020-11-15 16:20] VITALS: BP 120/79
[2020-11-15 16:21] VITALS: BP 120/69
[2020-11-16 08:43] VITALS: BP 98/64
[2020-11-16] MEDS: VITAMINS A & D 113 GM OINTMENT TP SCH (10:01)
[2020-11-16] MEDS: RisperiDONE 3 MG TABLET PO SCH ×2 (10:01→16:46)
[2020-11-16] MEDS: DIVALPROEX SODIUM 500 MG DR TABLET PO SCH ×2 (10:01→20:55)
[2020-11-16 16:27] VITALS: BP 103/77
[2020-11-16 20:00] VITALS: BP 110/74
[2020-11-17] MEDS: RisperiDONE 3 MG TABLET PO SCH ×2 (08:40→16:10)
[2020-11-17] MEDS: VITAMINS A & D 113 GM OINTMENT TP SCH (08:40)
[2020-11-17] MEDS: DIVALPROEX SODIUM 500 MG DR TABLET PO SCH ×2 (08:40→20:05)
[2020-11-17 10:38] VITALS: BP 105/66
[2020-11-17 16:12] VITALS: BP 100/71
[2020-11-18] MEDS: DIVALPROEX SODIUM 500 MG DR TABLET PO SCH ×2 (08:25→20:24)
[2020-11-18] MEDS: VITAMINS A & D 113 GM OINTMENT TP SCH (08:25)
[2020-11-18] MEDS: RisperiDONE 3 MG TABLET PO SCH ×2 (08:25→16:29)
[2020-11-18 09:36] VITALS: BP 102/61
[2020-11-18 16:13] VITALS: BP 102/63
[2020-11-19 08:33] VITALS: BP 103/61
[2020-11-19] MEDS: DIVALPROEX SODIUM 500 MG DR TABLET PO SCH ×2 (08:51→20:27)
[2020-11-19] MEDS: RisperiDONE 3 MG TABLET PO SCH ×2 (08:52→16:13)
[2020-11-19] MEDS: VITAMINS A & D 113 GM OINTMENT TP SCH (09:02)
[2020-11-19 16:03] VITALS: BP 128/74
[2020-11-20] MEDS: DIVALPROEX SODIUM 500 MG DR TABLET PO SCH ×2 (08:24→20:12)
[2020-11-20] MEDS: VITAMINS A & D 113 GM OINTMENT TP SCH (08:24)
[2020-11-20] MEDS: RisperiDONE 3 MG TABLET PO SCH ×2 (08:24→16:02)
[2020-11-20 08:56] LABS: COVID AG,FIA SOURCE NASAL SWAB
[2020-11-20 16:45] VITALS: BP 100/69
[2020-11-21] MEDS: VITAMINS A & D 113 GM OINTMENT TP SCH (08:34)
[2020-11-21] MEDS: RisperiDONE 3 MG TABLET PO SCH ×2 (08:34→16:58)
[2020-11-21] MEDS: DIVALPROEX SODIUM 500 MG DR TABLET PO SCH ×2 (08:34→21:19)
[2020-11-21 08:37] VITALS: BP 104/61
[2020-11-21 17:22] VITALS: BP 110/63
[2020-11-21 18:22] VITALS: BP 109/61
[2020-11-22] MEDS: RisperiDONE 3 MG TABLET PO SCH ×2 (08:25→16:17)
[2020-11-22] MEDS: DIVALPROEX SODIUM 500 MG DR TABLET PO SCH ×2 (08:25→20:37)
[2020-11-22 09:56] VITALS: BP 91/64
[2020-11-22] MEDS: VITAMINS A & D 113 GM OINTMENT TP SCH (11:23)
[2020-11-22 16:00] VITALS: BP 105/67
[2020-11-23] MEDS: DIVALPROEX SODIUM 500 MG DR TABLET PO SCH ×2 (08:22→20:13)
[2020-11-23] MEDS: RisperiDONE 3 MG TABLET PO SCH ×2 (08:22→16:22)
[2020-11-23 09:21] VITALS: BP 114/67
[2020-11-23] MEDS: VITAMINS A & D 113 GM OINTMENT TP SCH (11:03)
[2020-11-23 16:43] VITALS: BP 111/64
[2020-11-24] MEDS: RisperiDONE 3 MG TABLET PO SCH ×2 (08:52→16:13)
[2020-11-24] MEDS: VITAMINS A & D 113 GM OINTMENT TP SCH (08:52)
[2020-11-24] MEDS: DIVALPROEX SODIUM 500 MG DR TABLET PO SCH ×2 (08:52→20:05)
[2020-11-24 08:59] VITALS: BP 104/60
[2020-11-24 16:36] VITALS: BP 101/65
[2020-11-25 08:16] VITALS: BP 122/50
[2020-11-25] MEDS: RisperiDONE 3 MG TABLET PO SCH ×2 (08:49→16:12)
[2020-11-25] MEDS: DIVALPROEX SODIUM 500 MG DR TABLET PO SCH ×2 (08:49→20:18)
[2020-11-25] MEDS: VITAMINS A & D 113 GM OINTMENT TP SCH (12:14)
[2020-11-25 16:17] VITALS: BP 97/60
[2020-11-26] MEDS: RisperiDONE 3 MG TABLET PO SCH (08:19)
[2020-11-26] MEDS: DIVALPROEX SODIUM 500 MG DR TABLET PO SCH ×2 (08:19→20:09)
[2020-11-26] MEDS: VITAMINS A & D 113 GM OINTMENT TP SCH (08:20)
[2020-11-26 08:36] VITALS: BP 104/70
[2020-11-26 16:24] VITALS: BP 98/61
[2020-11-26] MEDS: RisperiDONE 2 MG TABLET PO SCH (20:42)
[2020-11-26] MEDS ORDERED: RisperiDONE 4 MG TABLET PO SCH (21:00)
[2020-11-27] MEDS: RisperiDONE 2 MG TABLET PO SCH ×2 (08:22→21:21)
[2020-11-27] MEDS: DIVALPROEX SODIUM 500 MG DR TABLET PO SCH ×2 (08:22→21:21)
[2020-11-27] MEDS: VITAMINS A & D 113 GM OINTMENT TP SCH (08:23)
[2020-11-27 08:49] VITALS: BP 98/61
[2020-11-27 10:24] LABS: COVID AG,FIA SOURCE NASAL SWAB
[2020-11-27 16:00] VITALS: BP 105/64
[2020-11-28 09:20] VITALS: BP 99/68
[2020-11-28] MEDS ORDERED: TUBERCULIN, PURIFIED PROTEIN DERIVATIVE 5 TU/0.1 ML SYRINGE ID ONE (09:30)
[2020-11-28] MEDS: DIVALPROEX SODIUM 500 MG DR TABLET PO SCH ×2 (09:34→20:21)
[2020-11-28] MEDS: RisperiDONE 2 MG TABLET PO SCH ×2 (09:35→20:21)
[2020-11-28] MEDS: VITAMINS A & D 113 GM OINTMENT TP SCH (09:35)
[2020-11-28 16:30] VITALS: BP 120/77
[2020-11-29 08:25] VITALS: BP 107/74
[2020-11-29] MEDS: VITAMINS A & D 113 GM OINTMENT TP SCH (09:21)
[2020-11-29] MEDS: RisperiDONE 2 MG TABLET PO SCH ×2 (09:21→20:32)
[2020-11-29] MEDS: DIVALPROEX SODIUM 500 MG DR TABLET PO SCH ×2 (09:21→20:31)
[2020-11-29 16:52] VITALS: BP 128/75
[2020-11-30 08:13] VITALS: BP 118/62
[2020-11-30] MEDS: RisperiDONE 2 MG TABLET PO SCH ×2 (09:26→20:24)
[2020-11-30] MEDS: DIVALPROEX SODIUM 500 MG DR TABLET PO SCH ×2 (09:26→20:24)
[2020-11-30] MEDS: VITAMINS A & D 113 GM OINTMENT TP SCH (09:27)
[2020-11-30 16:34] VITALS: BP 104/67
[2020-12-01 08:00] VITALS: BP 108/69
[2020-12-01] MEDS: DIVALPROEX SODIUM 500 MG DR TABLET PO SCH ×2 (09:16→21:12)
[2020-12-01] MEDS: RisperiDONE 2 MG TABLET PO SCH ×2 (09:16→21:12)
[2020-12-01 10:22] VITALS: BP 108/69
[2020-12-01] MEDS: VITAMINS A & D 113 GM OINTMENT TP SCH (12:34)
[2020-12-01 16:00] VITALS: BP 105/65
[2020-12-02 08:45] VITALS: BP 95/54
[2020-12-02] MEDS: RisperiDONE 2 MG TABLET PO SCH ×2 (09:05→21:08)
[2020-12-02] MEDS: DIVALPROEX SODIUM 500 MG DR TABLET PO SCH ×2 (09:05→21:08)
[2020-12-02] MEDS: VITAMINS A & D 113 GM OINTMENT TP SCH (09:06)
[2020-12-02 16:42] VITALS: BP 100/65
[2020-12-03] MEDS: VITAMINS A & D 113 GM OINTMENT TP SCH (09:00)
[2020-12-03] MEDS: RisperiDONE 2 MG TABLET PO SCH ×2 (09:45→20:15)
[2020-12-03] MEDS: DIVALPROEX SODIUM 500 MG DR TABLET PO SCH ×2 (09:45→20:15)
[2020-12-03 10:13] VITALS: BP 114/71
[2020-12-04 09:30] VITALS: BP 134/99
[2020-12-04] MEDS: VITAMINS A & D 113 GM OINTMENT TP SCH (09:46)
[2020-12-04] MEDS: RisperiDONE 2 MG TABLET PO SCH ×2 (09:46→20:11)
[2020-12-04] MEDS: DIVALPROEX SODIUM 500 MG DR TABLET PO SCH ×2 (09:46→20:11)
[2020-12-04 15:25] LABS: COVID AG,FIA SOURCE NASAL SWAB
[2020-12-04 16:00] VITALS: BP 117/79
[2020-12-05 09:08] VITALS: BP 107/65
[2020-12-05] MEDS: DIVALPROEX SODIUM 500 MG DR TABLET PO SCH ×2 (10:00→20:07)
[2020-12-05] MEDS: RisperiDONE 2 MG TABLET PO SCH ×2 (10:00→20:07)
[2020-12-05] MEDS: VITAMINS A & D 113 GM OINTMENT TP SCH (10:00)
[2020-12-05 16:05] VITALS: BP 118/73
[2020-12-06] MEDS: RisperiDONE 2 MG TABLET PO SCH ×2 (08:04→20:02)
[2020-12-06] MEDS: VITAMINS A & D 113 GM OINTMENT TP SCH (08:05)
[2020-12-06] MEDS: DIVALPROEX SODIUM 500 MG DR TABLET PO SCH ×2 (08:05→20:02)
[2020-12-06 09:00] VITALS: BP 104/62
[2020-12-06 16:00] VITALS: BP 100/69
[2020-12-07 08:21] VITALS: BP 107/69
[2020-12-07] MEDS: DIVALPROEX SODIUM 500 MG DR TABLET PO SCH ×2 (09:32→20:19)
[2020-12-07] MEDS: RisperiDONE 2 MG TABLET PO SCH ×2 (09:33→20:18)
[2020-12-07] MEDS: VITAMINS A & D 113 GM OINTMENT TP SCH (09:33)
[2020-12-07 16:20] VITALS: BP 101/69
[2020-12-08 08:47] VITALS: BP 107/60
[2020-12-08] MEDS: VITAMINS A & D 113 GM OINTMENT TP SCH (09:00)
[2020-12-08] MEDS: RisperiDONE 2 MG TABLET PO SCH ×2 (09:43→20:41)
[2020-12-08] MEDS: DIVALPROEX SODIUM 500 MG DR TABLET PO SCH ×2 (09:43→20:41)
[2020-12-08 16:00] VITALS: BP 108/60
[2020-12-09 08:14] VITALS: BP 102/68
[2020-12-09] MEDS: RisperiDONE 2 MG TABLET PO SCH ×2 (10:11→20:22)
[2020-12-09] MEDS: DIVALPROEX SODIUM 500 MG DR TABLET PO SCH ×2 (10:11→20:22)
[2020-12-09] MEDS: VITAMINS A & D 113 GM OINTMENT TP SCH (10:11)
[2020-12-09] MEDS ORDERED: RISP4TAB73 PO (14:30)
[2020-12-09] MEDS ORDERED: DIVA-112 PO (14:30)
[2020-12-09] MEDS ORDERED: PETR113O TP (14:30)
[2020-12-09 16:00] VITALS: BP 96/64
[2020-12-10 04:28] VITALS: BP 101/66
[2020-12-10 08:00] VITALS: BP 102/67
[2020-12-10] MEDS: RisperiDONE 2 MG TABLET PO SCH (08:29)
[2020-12-10] MEDS: VITAMINS A & D 113 GM OINTMENT TP SCH (08:29)
[2020-12-10] MEDS: DIVALPROEX SODIUM 500 MG DR TABLET PO SCH (08:30)
== END 2020-12-10 12:00 | DRG 750 ==
LOC: EMS 16:55 → 3EI 09-10 13:26 → 3EX 11-21 11:00 → 3EI 11-27 15:58
DX: F20.2 Catatonic schizophrenia (principal); G93.40 Encephalopathy, unspecified; I95.9 Hypotension, unspecified; B85.0 Pediculosis due to Pediculus humanus capitis; K59.00 Constipation, unspecified; B85.1 Pediculosis due to Pediculus humanus corporis; B86 Scabies; Z20.822 Contact with and (suspected) exposure to COVID-19; Z79.899 Other long term (current) drug therapy; Z91.14 Patient's other noncompliance with medication regimen; Z59.0 Homelessness
CPT/HCPCS: 80053; 80061; 80164; 85025; 99285; G0378; G0480

== ENCOUNTER 2024-06-01 11:04 | Inpatient (IN) | payer MEDICAID, OTHER ==
[~2024-06-01] VITALS: Ht 167.6 cm; Wt 82.8 kg
[~2024-06-01 11:04] MED LIST changes: +DIVA-112 PO; +PETR113O TP; -RISP1TAB48 PO; +RISP4TAB94 PO
[2024-06-01 11:33] LABS: COVID AG,FIA SOURCE NASAL SWAB
[2024-06-01 11:45] LABS: BASOPHILS % (AUTO) 0.5 % (0.0-2.0); EOSINOPHILS % (AUTO) 0.8 % (1.0-6.0); HEMATOCRIT 41.9 % (41-53); HEMOGLOBIN 14.2 g/dL (13.5-17.5); LYMPHOCYTES # (AUTO) 1.4 K/uL (1.0-4.8); LYMPHOCYTES % (AUTO) 34.3 % (22.0-44.0); MEAN CORPUSCULAR HGB CONC 33.9 G/dL (31.0-37.0); MEAN CORPUSCULAR VOLUME 92 fL (80-100); MONOCYTES # (AUTO) 0.6 K/uL (0.1-1.0); MONOCYTES % (AUTO) 14.2 % (2.0-9.0); NEUTROPHILS # (AUTO) 2.1 K/uL (1.8-7.7); NEUTROPHILS % (AUTO) 50.2 % (40.0-70.0); PLATELET COUNT (AUTO) 199 K/uL (150-450); RED BLOOD CELL COUNT(AUTO) 4.58 MIL/uL (4.50-5.90); RED CELL DISTRIBUTION WIDTH 13.3 % (11.5-14.5); WHITE BLOOD COUNT (AUTO) 4.1 K/uL (4.5-11.0)
[2024-06-01 11:55] LABS: ANION GAP 7 mmol/L (8-16); CALCIUM, TOTAL 8.6 mg/dL (8.8-10.5); CARBON DIOXIDE 30 mmol/L (22-29); CHLORIDE 103 mmol/L (98-107); CREATININE 0.67 mg/dL (0.60-1.30); GLOMERULAR FILTR. RATE CALC > 60 mL/min (>60); GLUCOSE,RANDOM 80 mg/dL (70-110); POTASSIUM 3.7 mmol/L (3.5-5.1); SODIUM SERUM 140 mmol/L (136-145); UREA NITROGEN, BLOOD 8 mg/dL (7-18)
[2024-06-01 12:12] LABS: ALCOHOL, BLOOD (SERUM) < 3 mg/dL (0-10)
[2024-06-01 12:28] LABS: SARS-COV2 (COVID) ANTIGEN,FIA Negative (Negative)
[2024-06-01 22:49] VITALS: BP 130/82; PULSE 100; RESP 18; TEMP 97.5; O2SAT 100
[2024-06-02] MEDS ORDERED: ONDANSETRON 4 MG TABLET PO PRN (06:30)
[2024-06-02] MEDS ORDERED: IBUPROFEN 600 MG TABLET PO PRN (06:30)
[2024-06-02] MEDS ORDERED: DOCUSATE SODIUM 100 MG CAPSULE PO PRN (06:30)
[2024-06-02] MEDS ORDERED: BENZOCAINE/MENTHOL [CEPACOL] LOZENGE PO PRN (06:30)
[2024-06-02] MEDS ORDERED: PETROLATUM,WHITE 28 GM JELLY TP PRN (06:30)
[2024-06-02] MEDS ORDERED: LOPERAMIDE HCL 2 MG CAPSULE PO PRN (06:30)
[2024-06-02] MEDS ORDERED: OMEPRAZOLE 20 MG CAPSULE PO PRN (06:30)
[2024-06-02] MEDS ORDERED: ALBUTEROL SULFATE HFA 90 MCG/PUFF 8 GM INHALER IH PRN (06:30)
[2024-06-02] MEDS ORDERED: MAG HYDROX/ALUMINUM HYD/SIMETH ES 30 ML SUSPENSION UDCUP PO PRN (06:30)
[2024-06-02] MEDS ORDERED: ACETAMINOPHEN 325 MG TABLET PO PRN (06:30)
[2024-06-02] MEDS ORDERED: MAGNESIUM HYDROXIDE SUSPENSION 30 ML UDCUP PO PRN (06:30)
[2024-06-02] MEDS ORDERED: BACITRACIN 28 GM OINTMENT TP PRN (06:30)
[2024-06-02] MEDS ORDERED: CloNIDine HCL 0.1 MG TABLET PO PRN (06:30)
[2024-06-02] MEDS: LORazepam 2 MG/ML VIAL IM ONE (08:30)
[2024-06-02] MEDS: DiphenhydrAMINE HCL 50 MG/ML VIAL IM ONE (08:30)
[2024-06-02] MEDS: HALOPERIDOL LACTATE 5 MG/ML VIAL IM ONE (08:30)
[2024-06-02 10:59] VITALS: RESP 17
[2024-06-02 12:54] LABS: APPEARANCE,URINE CLEAR (CLEAR); BILIRUBIN,URINE NEGATIVE (NEGATIVE); COLOR,URINE LIGHT YELLOW (YELLOW); GLUCOSE, URINE (UA) NEGATIVE (NEGATIVE); KETONES,URINE NEGATIVE (NEGATIVE); LEUKOCYTE ESTERASE ,URINE NEGATIVE (NEGATIVE); NITRATE,URINE NEGATIVE (NEGATIVE); OCCULT BLOOD,URINE NEGATIVE (NEGATIVE); PH,URINE 6.5 (5.0-8.0); PH,URINE DRUG SCREEN 6.5 (5.0-8.0); PROTEIN,URINE NEGATIVE (NEGATIVE); SPECIFIC GRAVITIY, URINE 1.018 (1.003-1.030); UROBILINOGEN,URINE <=1.0 mg/dL (<=1.0)
[2024-06-02 15:26] LABS: ALCOHOL, URINE DRUG SCREEN NEGATIVE (NEGATIVE); AMPHET/METH SCREEN,URINE POSITIVE (NEGATIVE); BARBITURATE SCREEN, URINE NEGATIVE (NEGATIVE); BENZODIAZEPINES SCREEN,URINE NEGATIVE (NEGATIVE); CANNABINOID SCREEN,URINE POSITIVE (NEGATIVE); COCAINE SCREEN,URINE NEGATIVE (NEGATIVE); METHADONE SCREEN, URINE NEGATIVE (NEGATIVE); OPIATE SCREEN,URINE NEGATIVE (NEGATIVE); PHENCYCLIDINE SCREEN,URINE NEGATIVE (NEGATIVE)
[2024-06-02] MEDS: LORazepam 2 MG TABLET PO PRN (16:37)
[2024-06-02] MEDS: HALOPERIDOL 5 MG TABLET PO PRN (16:37)
[2024-06-02 20:27] VITALS: RESP 18
[2024-06-02] MEDS: RisperiDONE 4 MG TABLET PO SCH (21:29)
[2024-06-02] MEDS: DIVALPROEX SODIUM 500 MG DR TABLET PO SCH (21:29)
[2024-06-03 08:56] VITALS: BP 112/80; PULSE 104; RESP 18; TEMP 98.2; O2SAT 96
[2024-06-03] MEDS: BENZTROPINE MESYLATE 2 MG TABLET PO SCH (20:02)
[2024-06-03] MEDS: HALOPERIDOL 5 MG TABLET PO SCH (20:02)
[2024-06-03 20:50] VITALS: BP 109/82; PULSE 92; RESP 18; TEMP 97.9; O2SAT 97
[2024-06-04 08:13] VITALS: RESP 17
[2024-06-04 20:41] VITALS: RESP 18; TEMP 97.3
[2024-06-05] MEDS: ZOLPIDEM TARTRATE 10 MG TABLET PO PRN (01:22)
[2024-06-05 08:38] VITALS: BP 128/82; PULSE 93; RESP 17; TEMP 97.7; O2SAT 97
[2024-06-05 08:48] VITALS: BP 128/82; PULSE 97; RESP 17; TEMP 97.7; O2SAT 97
[2024-06-05] MEDS ORDERED: HALOPERIDOL LACTATE 5 MG/ML VIAL IM PRN (18:45)
[2024-06-05 20:59] VITALS: RESP 18
[2024-06-06 09:53] LABS: BASOPHILS % (AUTO) 0.4 % (0.0-2.0); EOSINOPHILS % (AUTO) 0.4 % (1.0-6.0); HEMATOCRIT 44.6 % (41-53); HEMOGLOBIN 15.1 g/dL (13.5-17.5); LYMPHOCYTES # (AUTO) 1.6 K/uL (1.0-4.8); MEAN CORPUSCULAR HGB CONC 33.8 G/dL (31.0-37.0); MEAN CORPUSCULAR VOLUME 92 fL (80-100); MONOCYTES # (AUTO) 0.9 K/uL (0.1-1.0); MONOCYTES % (AUTO) 16.1 % (2.0-9.0); NEUTROPHILS # (AUTO) 2.8 K/uL (1.8-7.7); NEUTROPHILS % (AUTO) 52.1 % (40.0-70.0); PLATELET COUNT (AUTO) 213 K/uL (150-450); RED BLOOD CELL COUNT(AUTO) 4.88 MIL/uL (4.50-5.90); RED CELL DISTRIBUTION WIDTH 13.5 % (11.5-14.5); WHITE BLOOD COUNT (AUTO) 5.3 K/uL (4.5-11.0)
[2024-06-06] MEDS: CloZAPine 25 MG TABLET PO SCH (10:25)
[2024-06-06 12:31] VITALS: RESP 19
[2024-06-06 21:02] VITALS: BP 132/83; PULSE 97; RESP 18; TEMP 97.8; O2SAT 97
[2024-06-07] MEDS: CloZAPine 25 MG TABLET PO SCH ×2 (08:21→20:54)
[2024-06-07 09:26] VITALS: BP 116/69; PULSE 91; RESP 18; O2SAT 98
[2024-06-07] MEDS ORDERED: TUBERCULIN, PURIFIED PROTEIN DERIVATIVE 5 TU/0.1 ML SYRINGE ID ONE (18:15)
[2024-06-07 22:23] VITALS: RESP 18
[2024-06-08] MEDS: CloZAPine 25 MG TABLET PO SCH ×2 (08:35→20:59)
[2024-06-08 09:50] VITALS: BP 121/74; PULSE 102; RESP 18; TEMP 97.6; O2SAT 97
[2024-06-08 20:40] VITALS: BP 119/76; PULSE 99; RESP 18; TEMP 98.1; O2SAT 96
[2024-06-09] MEDS: CloZAPine 25 MG TABLET PO SCH (08:36)
[2024-06-09 09:35] VITALS: BP 129/84; PULSE 103; RESP 18; TEMP 97.8; O2SAT 97
[2024-06-09] MEDS ORDERED: TUBERCULIN, PURIFIED PROTEIN DERIVATIVE 5 TU/0.1 ML SYRINGE ID ONE (18:45)
[2024-06-09 21:09] VITALS: RESP 18
[2024-06-10 08:47] VITALS: BP 140/100; PULSE 114; RESP 18; TEMP 98.4; O2SAT 97
[2024-06-10 21:19] VITALS: BP 145/104; PULSE 100; RESP 18; TEMP 98.3; O2SAT 99
[2024-06-11] MEDS: CloZAPine 25 MG TABLET PO SCH (08:39)
[2024-06-11 09:18] VITALS: BP 151/104; PULSE 112; RESP 16; TEMP 97.7; O2SAT 98
[2024-06-11] MEDS: CloZAPine 100 MG TABLET PO SCH (20:25)
[2024-06-11 20:58] VITALS: BP 149/90; PULSE 100; RESP 16; TEMP 97.8; O2SAT 96
[2024-06-12] MEDS: CloZAPine 25 MG TABLET PO SCH (08:10)
[2024-06-12 13:28] VITALS: RESP 18
[2024-06-12] MEDS: CloZAPine 100 MG TABLET PO SCH (20:33)
[2024-06-12 21:12] VITALS: BP 149/94; PULSE 100; RESP 18; TEMP 97.1; O2SAT 97
[2024-06-13 08:22] LABS: BASOPHILS % (AUTO) 0.2 % (0.0-2.0); EOSINOPHILS % (AUTO) 0.3 % (1.0-6.0); HEMATOCRIT 44.1 % (41-53); LYMPHOCYTES # (AUTO) 2.2 K/uL (1.0-4.8); LYMPHOCYTES % (AUTO) 33.1 % (22.0-44.0); MEAN CORPUSCULAR HEMOGLOBIN 31.4 pg (26.0-34.0); MEAN CORPUSCULAR HGB CONC 34.1 G/dL (31.0-37.0); MEAN CORPUSCULAR VOLUME 92 fL (80-100); MONOCYTES # (AUTO) 1.1 K/uL (0.1-1.0); MONOCYTES % (AUTO) 17.1 % (2.0-9.0); NEUTROPHILS # (AUTO) 3.3 K/uL (1.8-7.7); NEUTROPHILS % (AUTO) 49.3 % (40.0-70.0); PLATELET COUNT (AUTO) 234 K/uL (150-450); RED BLOOD CELL COUNT(AUTO) 4.78 MIL/uL (4.50-5.90); RED CELL DISTRIBUTION WIDTH 13.4 % (11.5-14.5); WHITE BLOOD COUNT (AUTO) 6.6 K/uL (4.5-11.0)
[2024-06-13 09:13] VITALS: BP 138/100; PULSE 110; RESP 18; TEMP 97.9; O2SAT 96
[2024-06-13] MEDS: CloZAPine 25 MG TABLET PO SCH (09:37)
[2024-06-13] MEDS: CloZAPine 100 MG TABLET PO SCH (20:04)
[2024-06-13 20:45] VITALS: BP 129/80; PULSE 114; RESP 18; TEMP 96.6; O2SAT 98
[2024-06-14] MEDS: CloZAPine 100 MG TABLET PO SCH (08:50)
[2024-06-14 10:07] VITALS: BP 122/83; PULSE 105; RESP 19; TEMP 98.1; O2SAT 96
[2024-06-14 20:42] VITALS: BP 124/80; PULSE 92; RESP 18; TEMP 98.3
[2024-06-15 09:00] VITALS: BP 134/82; PULSE 99; RESP 18; TEMP 97.6; O2SAT 97
[2024-06-15 20:01] VITALS: BP 135/83; PULSE 95; RESP 18; TEMP 99; O2SAT 98
[2024-06-16] MEDS: CloZAPine 25 MG TABLET PO SCH (08:30)
[2024-06-16 09:09] VITALS: BP 127/74; PULSE 97; RESP 17; TEMP 97.7; O2SAT 98
[2024-06-16] MEDS: CloZAPine 100 MG TABLET PO SCH (20:22)
[2024-06-16 22:20] VITALS: BP 128/85; PULSE 97; RESP 18; TEMP 98.3; O2SAT 97
[2024-06-17] MEDS: CloZAPine 25 MG TABLET PO SCH (08:20)
[2024-06-17 09:12] VITALS: BP 115/73; PULSE 100; RESP 18; TEMP 98; O2SAT 96
[2024-06-17] MEDS: CloZAPine 100 MG TABLET PO SCH (20:13)
[2024-06-17 20:37] VITALS: BP 128/86; PULSE 84; RESP 18; TEMP 98.4
[2024-06-18 08:41] VITALS: BP 120/80; PULSE 99; RESP 20; TEMP 97.9; O2SAT 98
[2024-06-18] MEDS: CloZAPine 100 MG TABLET PO SCH ×2 (08:51→20:36)
[2024-06-18 20:10] VITALS: BP 130/83; PULSE 100; RESP 18; TEMP 98.3; O2SAT 98
[2024-06-19 11:24] VITALS: BP 121/68; PULSE 89; RESP 18; TEMP 97.9; O2SAT 98
[2024-06-19 20:47] VITALS: BP 127/76; PULSE 87; RESP 18; TEMP 98.2
[2024-06-20 07:31] LABS: BASOPHILS % (AUTO) 0.2 % (0.0-2.0); EOSINOPHILS % (AUTO) 0.3 % (1.0-6.0); HEMATOCRIT 46.7 % (41-53); HEMOGLOBIN 15.9 g/dL (13.5-17.5); LYMPHOCYTES # (AUTO) 2.3 K/uL (1.0-4.8); LYMPHOCYTES % (AUTO) 34.3 % (22.0-44.0); MEAN CORPUSCULAR HEMOGLOBIN 31.4 pg (26.0-34.0); MEAN CORPUSCULAR HGB CONC 34.1 G/dL (31.0-37.0); MEAN CORPUSCULAR VOLUME 92 fL (80-100); MONOCYTES # (AUTO) 0.9 K/uL (0.1-1.0); MONOCYTES % (AUTO) 12.9 % (2.0-9.0); NEUTROPHILS # (AUTO) 3.5 K/uL (1.8-7.7); NEUTROPHILS % (AUTO) 52.3 % (40.0-70.0); PLATELET COUNT (AUTO) 212 K/uL (150-450); RED BLOOD CELL COUNT(AUTO) 5.07 MIL/uL (4.50-5.90); RED CELL DISTRIBUTION WIDTH 13.4 % (11.5-14.5); WHITE BLOOD COUNT (AUTO) 6.7 K/uL (4.5-11.0)
[2024-06-20] MEDS: CloZAPine 100 MG TABLET PO SCH (08:30)
[2024-06-20 09:23] VITALS: BP 126/86; PULSE 98; RESP 18; TEMP 97.2; O2SAT 99
[2024-06-20 20:42] VITALS: BP 134/85; PULSE 103; RESP 16; TEMP 97.8; O2SAT 98
[2024-06-21 08:42] VITALS: BP 126/78; PULSE 95; RESP 18; TEMP 97.2; O2SAT 98
[2024-06-21 22:23] VITALS: RESP 18
[2024-06-22 08:51] VITALS: BP 123/82; PULSE 110; RESP 18; TEMP 97.9; O2SAT 97
[2024-06-22 21:22] VITALS: RESP 18
[2024-06-23 13:31] VITALS: BP 108/70; PULSE 92; RESP 17; TEMP 98.1; O2SAT 95
[2024-06-23 21:54] VITALS: BP 110/76; PULSE 89; RESP 18; TEMP 97.9; O2SAT 97
[2024-06-24 10:16] VITALS: BP 116/77; PULSE 100; RESP 20; TEMP 98.1; O2SAT 99
[2024-06-24 21:24] VITALS: BP 92/61; PULSE 97; RESP 18; TEMP 98.2; O2SAT 97
[2024-06-25 10:04] VITALS: BP 125/84; PULSE 85; RESP 18; TEMP 97.9; O2SAT 97
[2024-06-26 11:13] VITALS: BP 158/80; PULSE 68; RESP 18; TEMP 98.4; O2SAT 98
[2024-06-27 01:49] VITALS: BP 118/70; PULSE 91; RESP 18; TEMP 98
[2024-06-27 09:42] VITALS: BP 119/83; PULSE 91; RESP 18; TEMP 97.9; O2SAT 98
[2024-06-27 12:19] LABS: BASOPHILS % (AUTO) 0.2 % (0.0-2.0); EOSINOPHILS % (AUTO) 0.7 % (1.0-6.0); HEMATOCRIT 42.4 % (41-53); HEMOGLOBIN 14.2 g/dL (13.5-17.5); LYMPHOCYTES # (AUTO) 3.1 K/uL (1.0-4.8); LYMPHOCYTES % (AUTO) 43.8 % (22.0-44.0); MEAN CORPUSCULAR HEMOGLOBIN 30.7 pg (26.0-34.0); MEAN CORPUSCULAR HGB CONC 33.4 G/dL (31.0-37.0); MEAN CORPUSCULAR VOLUME 92 fL (80-100); MONOCYTES # (AUTO) 1.3 K/uL (0.1-1.0); MONOCYTES % (AUTO) 18.8 % (2.0-9.0); NEUTROPHILS # (AUTO) 2.5 K/uL (1.8-7.7); NEUTROPHILS % (AUTO) 36.5 % (40.0-70.0); PLATELET COUNT (AUTO) 190 K/uL (150-450); RED BLOOD CELL COUNT(AUTO) 4.61 MIL/uL (4.50-5.90); RED CELL DISTRIBUTION WIDTH 13.3 % (11.5-14.5)
[2024-06-27 21:20] VITALS: BP 144/97; PULSE 90; RESP 19; TEMP 98; O2SAT 97
[2024-06-28 09:00] VITALS: BP 130/75; PULSE 64; RESP 17; TEMP 97.8; O2SAT 97
[2024-06-28 21:28] VITALS: BP 118/87; PULSE 83; RESP 18; TEMP 97.9; O2SAT 99
[2024-06-29 10:35] VITALS: BP 132/83; PULSE 82; RESP 18; TEMP 98.1; O2SAT 99
[2024-06-29 21:45] VITALS: BP 123/65; PULSE 67; RESP 18; TEMP 97.8; O2SAT 98
[2024-06-30 09:54] VITALS: BP 117/75; PULSE 97; RESP 18; TEMP 97.2; O2SAT 98
[2024-06-30 20:36] VITALS: BP 123/78; PULSE 87; RESP 17; TEMP 97.8; O2SAT 99
[2024-07-01 08:48] VITALS: RESP 18; TEMP 97.8
[2024-07-01 08:53] VITALS: BP 115/61; PULSE 70; RESP 18; TEMP 97.7; O2SAT 98
[2024-07-01] MEDS: NICOTINE 21 MG/24 HOUR PATCH TD SCH (13:30)
[2024-07-01] MEDS: NYSTATIN 15 GM POWDER BOTTLE TP SCH (13:32)
[2024-07-01 20:33] VITALS: BP 124/78; PULSE 86; RESP 18; TEMP 98.5; O2SAT 99
[2024-07-02 10:59] VITALS: BP 117/80; PULSE 90; RESP 18; TEMP 97.8; O2SAT 96
[2024-07-02 21:50] VITALS: TEMP 97.4
[2024-07-03 17:07] VITALS: BP 123/59; PULSE 73; RESP 18; TEMP 97.9; O2SAT 96
[2024-07-03 21:37] VITALS: BP 141/95; PULSE 87; RESP 18; TEMP 97.1; O2SAT 97
[2024-07-04 08:49] LABS: BASOPHILS % (AUTO) 0.3 % (0.0-2.0); EOSINOPHILS % (AUTO) 0.6 % (1.0-6.0); HEMATOCRIT 48.4 % (41-53); HEMOGLOBIN 16.2 g/dL (13.5-17.5); LYMPHOCYTES # (AUTO) 3.6 K/uL (1.0-4.8); LYMPHOCYTES % (AUTO) 35.4 % (22.0-44.0); MEAN CORPUSCULAR HEMOGLOBIN 30.5 pg (26.0-34.0); MEAN CORPUSCULAR HGB CONC 33.5 G/dL (31.0-37.0); MEAN CORPUSCULAR VOLUME 91 fL (80-100); MONOCYTES # (AUTO) 1.4 K/uL (0.1-1.0); MONOCYTES % (AUTO) 13.6 % (2.0-9.0); NEUTROPHILS # (AUTO) 5.1 K/uL (1.8-7.7); NEUTROPHILS % (AUTO) 50.1 % (40.0-70.0); PLATELET COUNT (AUTO) 208 K/uL (150-450); RED BLOOD CELL COUNT(AUTO) 5.32 MIL/uL (4.50-5.90); WHITE BLOOD COUNT (AUTO) 10.2 K/uL (4.5-11.0)
[2024-07-04 10:21] VITALS: BP 113/86; PULSE 75; RESP 17; TEMP 97.9; O2SAT 97
[2024-07-04 20:38] VITALS: BP 138/78; PULSE 66; RESP 18; TEMP 97.7; O2SAT 99
[2024-07-05 08:00] VITALS: BP 126/78; PULSE 92; RESP 18; TEMP 98.2; O2SAT 100
[2024-07-05 20:30] VITALS: BP 145/91; PULSE 95; RESP 18; TEMP 98.7; O2SAT 98
[2024-07-06 11:38] VITALS: BP 127/79; PULSE 62; RESP 17; TEMP 97.6; O2SAT 97
[2024-07-06 22:12] VITALS: BP 142/96; PULSE 91; RESP 18; TEMP 97.2; O2SAT 98
[2024-07-07 10:49] VITALS: BP 125/79; PULSE 73; RESP 18; TEMP 98.1; O2SAT 97
[2024-07-07 21:57] VITALS: BP 122/89; PULSE 84; RESP 18; TEMP 98.3; O2SAT 98
[2024-07-08 08:47] VITALS: BP 148/72; PULSE 100; RESP 18; TEMP 98.1; O2SAT 98
[2024-07-08 21:28] VITALS: BP 123/77; PULSE 76; RESP 18; TEMP 98.6; O2SAT 98
[2024-07-09 10:30] VITALS: BP 138/88; PULSE 92; RESP 19; TEMP 97.8; O2SAT 97
[2024-07-09 20:40] VITALS: BP 130/84; PULSE 92; RESP 18; TEMP 97.8
[2024-07-10 09:00] VITALS: BP 122/88; PULSE 80; RESP 19; TEMP 98.1; O2SAT 99
[2024-07-10 21:39] VITALS: BP 112/88; PULSE 81; RESP 18; TEMP 97.3; O2SAT 100
[2024-07-11 05:02] LABS: COVID AG,FIA SOURCE NASAL SWAB
[2024-07-11 05:30] LABS: SARS-COV2 (COVID) ANTIGEN,FIA Negative (Negative)
[2024-07-11 10:47] VITALS: BP 134/60; PULSE 100; RESP 17; TEMP 97; O2SAT 95
[2024-07-11 21:50] VITALS: BP 127/73; PULSE 97; RESP 18; TEMP 97.1; O2SAT 98
[2024-07-12] MEDS ORDERED: CLOZ100T61 PO ×2 (07:49)
[2024-07-12] MEDS ORDERED: BENZ2TAB84 PO (07:50)
[2024-07-12] MEDS ORDERED: HALO5TAB23 PO (07:52)
[2024-07-12 08:27] LABS: BASOPHILS % (AUTO) 0.5 % (0.0-2.0); EOSINOPHILS % (AUTO) 0.6 % (1.0-6.0); HEMATOCRIT 45.9 % (41-53); HEMOGLOBIN 15.5 g/dL (13.5-17.5); LYMPHOCYTES # (AUTO) 2.6 K/uL (1.0-4.8); LYMPHOCYTES % (AUTO) 35.4 % (22.0-44.0); MEAN CORPUSCULAR HEMOGLOBIN 30.7 pg (26.0-34.0); MEAN CORPUSCULAR HGB CONC 33.8 G/dL (31.0-37.0); MEAN CORPUSCULAR VOLUME 91 fL (80-100); MONOCYTES # (AUTO) 1.1 K/uL (0.1-1.0); MONOCYTES % (AUTO) 14.9 % (2.0-9.0); NEUTROPHILS # (AUTO) 3.5 K/uL (1.8-7.7); NEUTROPHILS % (AUTO) 48.6 % (40.0-70.0); PLATELET COUNT (AUTO) 222 K/uL (150-450); RED BLOOD CELL COUNT(AUTO) 5.04 MIL/uL (4.50-5.90); RED CELL DISTRIBUTION WIDTH 13.4 % (11.5-14.5); WHITE BLOOD COUNT (AUTO) 7.3 K/uL (4.5-11.0)
[2024-07-12 09:00] VITALS: BP 127/77; PULSE 106; RESP 18; TEMP 97.8
== END 2024-07-12 11:01 | DRG 750 ==
LOC: EMS 11:14 → 3EC 21:17 → 3EI 06-25 17:27
PROVIDERS: ADMIT Psychiatry & Neurology Psychiatry; ATTEND Psychiatry & Neurology Psychiatry
PROC: GZHZZZZ Group Psychotherapy (ICD-10-PCS; principal; 2024-06-02)
PROC: GZ52ZZZ Individual Psychotherapy, Cognitive (ICD-10-PCS; 2024-06-02)
DX: F20.0 Paranoid schizophrenia (principal); F12.10 Cannabis abuse, uncomplicated; F32.9 Major depressive disorder, single episode, unspecified; F41.9 Anxiety disorder, unspecified; Z20.822 Contact with and (suspected) exposure to COVID-19; G47.00 Insomnia, unspecified; K59.00 Constipation, unspecified; F15.10 Other stimulant abuse, uncomplicated; Z79.899 Other long term (current) drug therapy
CPT/HCPCS: 80048; 80307; 81003; 85025; 99285; G0480; J1200; J1630; J2060